=== PATIENT | male | born 2005 | race Asian ===

== ENCOUNTER 2024-07-13 00:53 | Emergency (ER) | payer OTHER, SELFPAY ==
[2024-07-13 00:59] VITALS: BP 144/77; PULSE 67; RESP 16; TEMP 35.9; O2SAT 97; BMI 21.5
--- NOTE | 2024-07-13 01:12 | ED.DIZZY ---
HPI - Dizziness General Chief Complaint: Dizziness/Vertigo Stated Complaint: nausea, dizzy Time Seen by Provider: 07/13/24 01:02 History of Present Illness HPI Narrative: Patient is a 18-year-old [facility] due to new presents with approximately 12 hours of vertigo. He was seen at [facility] earlier today in given meclizine. He has been trying to do the Portia maneuver at home but has been unable to complete on his own. He has true rotational vertigo with no other significant symptoms such as palpitations chest pain shortness. Does have significant nausea and vomiting. He has no chronic medical issues and otherwise is in good health. No other medications noted. No similar symptoms previously. Related Data Home Medications ?Medication ?Instructions ?Recorded ?Confirmed No Known Home Medications 07/13/24 07/13/24 Allergies Allergy/AdvReac Type Severity Reaction Status Date / Time No Known Drug Allergies Allergy Verified 07/13/24 01:03 Review of Systems Status of ROS: Reports: 10 or more systems reviewed and unremarkable except as noted in History and below Exam Narrative: Exam Narrative: EXAM GENERAL: Patient appears comfortable and well. EYES: No scleral icterus. ENT: Tympanic membranes and oropharynx normal. THYROID: no thyroid nodules or thyromegaly. LYMPH: No supraclavicular or cervical lymphadenopathy. SKIN: Visible skin seen during exam normal or with benign process only. EXT: No dependent lower extremity pedal edema. HEART: Regular rate and rhythm with no murmurs, rubs, or gallops. LUNGS: Clear to auscultation bilaterally with no crackles or wheezes. ABD: Soft, non tender, non distended. PSYCH: Good eye contact, speech is not pressured. Const: Vital Signs, click to edit/add: Vital Signs - 24 hr 07/13/24 00:59 Temperature 96.7 F L Pulse Rate [Pulse Oximeter] 67 Respiratory Rate 16 Blood Pressure [Ri ght Upper Arm] 144/77 H Pulse Oximetry 97 Oxygen Delivery Me thod Room Air Course Course ED Course: Patient seen and examined. Portia maneuver performed bilaterally. Vital Signs Vital signs: Initial Vital Signs Temperature 96.7 F L 07/13/24 00:59 Temperature Source Temporal Artery Scan 07/13/24 00:59 Pulse Rate 67 07/13/24 00:59 Respiratory Rate 16 07/13/24 00:59 Blood Pressure 144/77 H 07/13/24 00:59 Blood Pressure Mean 99 07/13/24 00:59 Blood Pressure Position Sitting 07/13/24 00:59 Pulse Oximetry 97 07/13/24 00:59 Oxygen Delivery Method Room Air 07/13/24 00:59 Vital Signs Temperature 96.7 F L 07/13/24 00:59 Pulse Rate 67 07/13/24 00:59 Respiratory Rate 16 07/13/24 00:59 Blood Pressure 144/77 H 07/13/24 00:59 Pulse Oximetry 97 07/13/24 00:59 Oxygen Delivery Method Room Air 07/13/24 00:59 Temperature 96.7 F L 07/13/24 00:59 Pulse Rate 67 07/13/24 00:59 Respiratory Rate 16 07/13/24 00:59 Blood Pressure 144/77 H 07/13/24 00:59 Pulse Oximetry 97 07/13/24 00:59 Oxygen Delivery Method Room Air 07/13/24 00:59 MDM - Dizziness MDM Narrative Medical decision making narrative: Patient presents for true vertigo and has no other significant findings on exam. I did treated with an Portia maneuver bilaterally as well as Zofran for the nausea. I asked him to continue his meclizine advanced his diet activity as tolerated follow-up with his primary physician as needed. Discharge Plan Discharge Clinical Impression: Vertigo Patient Disposition: Home, Self-Care Condition: Stable Instructions: Vertigo (ED) Additional Instructions: Continue Portia maneuvers 4 times per day. Zofran for nausea Continue to meclizine Follow-up with your doctor as needed. Activity Level: No Restrictions Discharge Diet: Regular Prescriptions: No Action No Known Home Medications Stand Alone Forms: [email or web address] Info Instructions
== END 2024-07-13 01:26 | disposition home or self-care (01) ==
LOC: ED 01:25
PROVIDERS: Emergency Provider Internal Medicine
DX: R42 Dizziness and giddiness (principal)
CPT/HCPCS: 99283